=== PATIENT | male | born 1990 | race Caucasian/White ===

== ENCOUNTER 2021-11-11 17:04 | Emergency (ER) | payer BC ==
[2021-11-11] MEDS ORDERED: NAPROSYN500 MG PO (22:19)
== END 2021-11-11 22:28 | disposition home or self-care (01) ==
LOC: ED 17:04
DX: S89.92XA Unspecified injury of left lower leg, initial encounter (principal); X58.XXXA Exposure to other specified factors, initial encounter; Y93.89 Activity, other specified; Y92.89 Other specified places as the place of occurrence of the external cause; Y99.8 Other external cause status